=== PATIENT | female | born 2005 ===

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

== ENCOUNTER 2024-02-26 09:05 | Outpatient (AMB) | payer MEDICAID, SELFPAY ==
[2024-02-26 09:06] VITALS: BP 100/62; BMI 22.9
--- NOTE | 2024-02-26 09:06 | MHC.OFFVIS ---
Vital Signs 02/26/24 09:06 Height 5 ft 2 in Weight 125 lb BMI 22.9 BP 100/62 Intake Visit Reasons: BC follow up Card Dealer Required: No Information Interpreted: clinical only Barrel Lathe Operator Inside: Barrel Lathe Operator Inside Present Allergies Penicillins [PENICILLINS] Allergy (Unknown, Verified 02/26/24 09:06) UNKNOWN Medication List - Last Reconciled 02/26/24 by Mamie Kearney CNM desog-e.estradiol/e.estradiol 0.15-0.02 mgx21 /0.01 mg x 5 1 tab PO DAILY ibuprofen 400 mg PO Q6H 7 days Is last menstrual period known: Yes Last menstrual period: 02/10/24 Do you need a note to return to daycare/school/sports/work: No HPI HPI BC follow up: Details: Is here for control follow-up, she has a history of PCOS diagnosed in the past elsewhere. She had chlamydia in the spring she has not had contact with that partner since but she took the medication twice. Her sister has hepatitis a, so she would be interested in testing for that as well. She likes being on the control pills her periods are shorter and not as crampy instead of 7 days they are now 5 days and there less heavy and not as uncomfortable. She likes being on the pills and plans to stay on them she is not having any other problems she said that she had a test of cure at the office downstairs at the [facility] and the chlamydia is gone. She is having no issues with pills she has not had any outbreaks of the herpes for a year and she does have the Valtrex in case she did. [facility] Medical History Ovarian cyst Family History Maternal Grandfather Colon cancer Maternal Aunt Breast cancer Maternal Aunt Uterine cancer Social History Alcohol intake: unknown Female Reproductive History Menstrual Age of Menarche: 10 Duration of menses: 3-5 days Date of last menstrual period: 02/10/24 control method: pills Total pregnancies: 0 Physical Exam Vital Signs: Last Vital Signs BP 100/62 02/26/24 09:06 BMI result Body Mass Index 22.9 Assessment & Plan Assessment & Plan (1) History of irregular menstrual cycles: Code(s): Z87.42 - Personal history of other diseases of the female genital tract Category: Medical (2) control counseling: Code(s): Z30.09 - Encounter for other general counseling and advice on contraception Category: Medical (3) PCOS (polycystic ovarian syndrome): Comment: Patient states she was diagnosed 2 years ago between visit at [facility] and [facility]. Code(s): E28.2 - Polycystic ovarian syndrome Category: Medical (4) Possible exposure to STD: Code(s): Z20.2 - Contact with and (suspected) exposure to infections with a predominantly sexual mode of transmission Category: Medical (5) Chlamydia infection: Comment: Seen at same [facility] 7 days ago was notified of positive chlamydia Sunday. started the medication. is on doxy Cyclen for 14 days. Recommend completing the medicine regardless of testing results today; 02/26/24...states she had neg CHARLI at [facility], Code(s): A74.9 - Chlamydial infection, unspecified Category: Medical (6) Hx of herpes genitalis: Comment: Patient says she was diagnosed 2 years ago and has Valtrex for p.r.n. use has not had an outbreak in a while. Code(s): Z86.19 - Personal history of other infectious and parasitic diseases Category: Medical (7) History of PID: Comment: Patient says she went to same [facility] 7 days ago and was given 14 days of doxy Cyclen and was later told she had chlamydia. is still on the doxy-I recommend she finish all of it. exam benign today,08/24/23..(of note she was also about to get her period that started some hours later) Code(s): Z87.42 - Personal history of other diseases of the female genital tract Category: Medical Plan Reviewed the control pills danger signs and to call for any problems she is doing well with them and wants to stay on them as a double check I am sending another refill on her prescription so she does not run out in the next year. Discussed that her 1st Pap smear will be done sometime in her 20st year if she continues to be abstinent from sex she would not need any pelvic exams until then but if she is sexually active it would be medina to get checked for STIs. She is interested in in lead work to check about the hepatitis a so I reviewed labs that have been done in the system did not see HIV testing but her other screens were negative but since it has been several months I am re ordering serologies for blood work for hepatitis AB and C syphilis HIV. She is on the portal so she can get her results. We will see her in a year. Orders: Orders Hepatitis B Surface Antigen Today E28.2 - Polycystic ovarian syndrome, Z20.2 - Contact with and (suspected) exposure to infections with a predominantly sexual mode of transmission, Z30.09 - Encounter for other general counseling and advice on contraception, Z87.42 - Personal history of other diseases of the female genital tract Hepatitis C Antibody Today E28.2 - Polycystic ovarian syndrome, Z20.2 - Contact with and (suspected) exposure to infections with a predominantly sexual mode of transmission, Z30.09 - Encounter for other general counseling and advice on contraception, Z87.42 - Personal history of other diseases of the female genital tract HIV Ab/Ag Today E28.2 - Polycystic ovarian syndrome, Z20.2 - Contact with and (suspected) exposure to infections with a predominantly sexual mode of transmission, Z30.09 - Encounter for other general counseling and advice on contraception, Z87.42 - Personal history of other diseases of the female genital tract Syphilis Screen Today E28.2 - Polycystic ovarian syndrome, Z20.2 - Contact with and (suspected) exposure to infections with a predominantly sexual mode of transmission, Z30.09 - Encounter for other general counseling and advice on contraception, Z87.42 - Personal history of other diseases of the female genital tract Hepatitis A,B,C Profile Today E28.2 - Polycystic ovarian syndrome, Z20.2 - Contact with and (suspected) exposure to infections with a predominantly sexual mode of transmission, Z30.09 - Encounter for other general counseling and advice on contraception, Z87.42 - Personal history of other diseases of the female genital tract Medications: Refilled desog-e.estradiol/e.estradiol 0.15-0.02 mgx21 /0.01 mg x 5 Start with the beginning of the next menses 1 tab PO DAILY 84 tabs 3RF Coding Level of Care Code Est Pt Level 3 (45766) Diagnoses History of irregular menstrual cycles Z87.42 control counseling Z30.09 PCOS (polycystic ovarian syndrome) E28.2 Possible exposure to STD Z20.2 Chlamydia infection A74.9 Hx of herpes genitalis Z86.19 History of PID Z87.42
== END 2024-02-26 10:22 | disposition home or self-care (01) ==
PROVIDERS: PCP Pediatrics; Visit Provider Advanced Practice Midwife
DX: Z87.42 Personal history of other diseases of the female genital tract (principal); Z30.09 Encounter for other general counseling and advice on contraception; E28.2 Polycystic ovarian syndrome; Z20.2 Contact with and (suspected) exposure to infections with a predominantly sexual mode of transmission; A74.9 Chlamydial infection, unspecified; Z86.19 Personal history of other infectious and parasitic diseases
CPT/HCPCS: 99213

== ENCOUNTER → 2024-02-26 09:05 | Outpatient (BNVA) | payer MEDICAID, SELFPAY | PROVIDERS: PCP Pediatrics; Visit Provider Advanced Practice Midwife ==

== ENCOUNTER 2024-02-26 10:04 | Outpatient (REF) | payer MEDICAID, SELFPAY ==
[2024-02-26 12:02] LABS: HBS Num1 1.55 mIU/mL (0-7.99); HBc Num1 0.14 S/CO (0.00-0.79); HBsAGNum1 0.45 S/CO (0.00-0.99); HIV AB/AG Nonreactive (Nonreactive); HIV Num 1 0.05 S/CO (0.00-0.99); Hepatitis A Antibody IgM 0.22 Index (0-0.79); Hepatitis B Core Antibody Nonreactive (Nonreactive); Hepatitis B Surface Antigen Negative (Negative); ~HepC Num1 0.13 S/CO (0.00-0.79); ~Hepatitis A Antibody IgM Nonreactive (Nonreactive); ~Hepatitis B Surface Antibody NONREACTIVE (Nonreactive); ~Hepatitis C Antibody Nonreactive (Nonreactive)
[2024-02-26 12:06] LABS: Syphilis Screen Reactive (Nonreactive)
[2024-03-03 15:31] LABS: RPR Quantitative Non-Reactive (Nonreactive); T.Pallidum Particle Agg Test Non-Reactive (Nonreactive)
== END 2024-02-26 10:05 | disposition home or self-care (01) ==
LOC: HO.HHCL 10:04
PROVIDERS: Visit Provider Advanced Practice Midwife
DX: Z30.09 Encounter for other general counseling and advice on contraception (principal); Z20.2 Contact with and (suspected) exposure to infections with a predominantly sexual mode of transmission; Z87.42 Personal history of other diseases of the female genital tract; E28.2 Polycystic ovarian syndrome; A74.9 Chlamydial infection, unspecified; Z86.19 Personal history of other infectious and parasitic diseases
CPT/HCPCS: 36415; 86592; 86704; 86706; 86709; 86780; 86803; 87340; 87389; 99212

== ENCOUNTER 2024-05-27 09:49 | Outpatient (AMB) | payer MEDICAID, SELFPAY ==
--- NOTE | 2024-05-27 09:50 | A.OFFVIS_ITS ---
Vital Signs 05/27/24 09:57 Height 5 ft 2 in Weight 125 lb BMI 22.9 BP 100/60 Intake Visit Reasons: BC pill fu Security Associate Services: Security Associate Present Information Interpreted: clinical only Cuff Cutter: Cuff Cutter Present Allergies Penicillins [PENICILLINS] Allergy (Unknown, Verified 05/27/24 09:58) UNKNOWN Medication List - Last Reconciled 05/27/24 by Mamie Kearney CNM desog-e.estradiol/e.estradiol 0.15-0.02 mgx21 /0.01 mg x 5 1 tab PO DAILY ibuprofen 400 mg PO Q6H 7 days Is last menstrual period known: Yes Last menstrual period: 05/15/24 HPI HPI BC pill fu: Details: Patient is here have a pill check visit. 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 She tells me she has not been sexually active since her last visit here. Chart reviewed she had chlamydia diagnosed, she had PID diagnosed, both treated, she had initial positive test for syphilis last year. I called lab to confirm the that the confirmat[facility] She has a history of herpes and she says she takes Valtrex for 3 days when she has an outbreak but she does not have any refills. She says she gets it downstairs at the clinic, [facility] Medical History Ovarian cyst Family History Maternal Grandfather Colon cancer Maternal Aunt Breast cancer Maternal Aunt Uterine cancer Social History Alcohol intake: unknown Female Reproductive History Menstrual Age of Menarche: 10 Duration of menses: 3-5 days Date of last menstrual period: 05/15/24 control method: pills Physical Exam Vital Signs: Last Vital Signs BP 100/60 05/27/24 09:57 BMI result Body Mass Index 22.9 Results Reviewed Results Reviewed: I reviewed all her past serology in last year plus. Assessment & Plan Assessment & Plan (1) History of PID: Comment: Patient says she went to same day care [facility] 7 days ago and was given 14 days of doxy Cyclen and was later told she had chlamydia. is still on the doxy-I recommend she finish all of it. exam benign today,08/24/23..(of note she was also about to get her period that started some hours later)/05/27/24- rev safer sex... Code(s): Z87.42 - Personal history of other diseases of the female genital tract Category: Medical (2) control counseling: Comment: happy on oills Code(s): Z30.09 - Encounter for other general counseling and advice on contraception Category: Medical (3) History of irregular menstrual cycles: Comment: reg on ocps now Code(s): Z87.42 - Personal history of other diseases of the female genital tract Category: Medical (4) PCOS (polycystic ovarian syndrome): Comment: Patient states she was diagnosed 2 years ago between visit at [facility] and [facility]. Code(s): E28.2 - Polycystic ovarian syndrome Category: Medical (5) Chlamydia infection: Comment: Seen at same [facility] 7 days ago was notified of positive chlamydia Sunday. started the medication. is on doxy Cyclen for 14 days. Recommend completing the medicine regardless of testing results today; 02/26/24...states she had neg CHARLI at [facility], ;rev safer sex 05/27/24 Code(s): A74.9 - Chlamydial infection, unspecified Category: Medical (6) Hx of herpes genitalis: Comment: Patient says she was diagnosed 2 years ago and has Valtrex for p.r.n. use has not had an outbreak in a while.; Code(s): Z86.19 - Personal history of other infectious and parasitic diseases Category: Medical (7) Possible exposure to STD: Code(s): Z20.2 - Contact with and (suspected) exposure to infections with a predominantly sexual mode of transmission Category: Medical (8) Syphilis: Comment: Treponema pallidum antibody positive awaiting the RPR titers....Confirmatory testing neg ( rpr and tppa were both negative.) Code(s): A53.9 - Syphilis, unspecified Category: Medical Plan rev all of above. rev importance of safer sex. rev her contrentment w ocps. renewed rxs fro ocps and valtrex for prn use. rev that next yr when she turns 20, we'll do a pap smear w exam. she hasnt been sexually active since last visit, so no need for any new testing today Medications: New 2 valacyclovir take one tablet q day for 3-5 days for outbreak... 1,000 mg PO DAILY PRN 30 tabs 0RF for an outbreak Refilled desog-e.estradiol/e.estradiol 0.15-0.02 mgx21 /0.01 mg x 5 Start with the beginning of the next menses 1 tab PO DAILY 84 tabs 4RF Coding Level of Care Code Est Pt Level 3 (26361) Diagnoses History of PID Z87.42 control counseling Z30.09 History of irregular menstrual cycles Z87.42 PCOS (polycystic ovarian syndrome) E28.2 Chlamydia infection A74.9 Hx of herpes genitalis Z86.19 Possible exposure to STD Z20.2 Syphilis A53.9
[2024-05-27 09:57] VITALS: BP 100/60; BMI 22.9
== END 2024-05-27 11:10 | disposition home or self-care (01) ==
LOC: HO.HWSM 09:49
PROVIDERS: PCP Pediatrics; Visit Provider Advanced Practice Midwife
DX: Z87.42 Personal history of other diseases of the female genital tract (principal); Z30.09 Encounter for other general counseling and advice on contraception; E28.2 Polycystic ovarian syndrome; A74.9 Chlamydial infection, unspecified; Z86.19 Personal history of other infectious and parasitic diseases; Z20.2 Contact with and (suspected) exposure to infections with a predominantly sexual mode of transmission; A53.9 Syphilis, unspecified
CPT/HCPCS: 99213

== ENCOUNTER → 2024-05-27 09:49 | Outpatient (BNVA) | payer MEDICAID, SELFPAY | PROVIDERS: PCP Pediatrics; Visit Provider Advanced Practice Midwife | DX: Z51.81 Encounter for therapeutic drug level monitoring (principal); Z30.09 Encounter for other general counseling and advice on contraception; A74.9 Chlamydial infection, unspecified; E28.2 Polycystic ovarian syndrome; Z20.2 Contact with and (suspected) exposure to infections with a predominantly sexual mode of transmission; Z87.42 Personal history of other diseases of the female genital tract; Z86.19 Personal history of other infectious and parasitic diseases | CPT/HCPCS: 99212 ==

== ENCOUNTER 2024-08-22 10:40 | Outpatient (REF) | payer MEDICAID, SELFPAY ==
--- NOTE | ~2024-08-22 | XR_ITS ---
EXAMINATION: XR CHEST 2 VIEWS HISTORY: persistent cough and fever COMPARISON: Comparison is made with the prior examination dated 04/10/2019. FINDINGS: PA and lateral views of the chest are submitted. The lungs are expanded and clear. There is no pleural effusion, pneumothorax, or pulmonary vascular congestion. The heart is normal in size. The bones are intact. XR/XR chest 2V IMPRESSION: No acute cardiopulmonary abnormality. Electronically signed by: Ismael Navarro MD 08/22/2024 11:20 AM BYRANNA
--- OUTSIDE RECORDS SUMMARY | 2024-08-22 12:10 | XMS_ITS | Clinical Summary ---
Author Organization [employer] Address [address] [place] [address] 7[address] [place] [address] Care Team Providers Care Contractor General Building Name Role Phone Ainsley Cervantes NP Primary Care Provider [phone] Allergies Active Allergy Reactions Criticality Noted Date Comments Penicillins 05/29/2019 Medications * This document contains information received from the source organization and may not represent a complete record from that organization. valACYclovir (Valtrex) 500 MG tabletIndications: HSV (herpes simplex virus) infection TAKE 1 TABLET BY MOUTH TWICE DAILY FOR 3 DAYS FOR OUTBREAK 6 tablet 5 4 Active ibuprofen 600 MG tablet take 1 tablet by oral route every 6-8 hours with food as needed for pain 30 tablet 4 Active ibuprofen 600 MG tabletIndications: Acute streptococcal pharyngitis Take 1 tablet (600 mg) by mouth every 8 (eight) hours if needed for moderate pain or fever. 30 tablet 5 09/19/19 25 Active azithromycin (Zithromax) 250 MG tabletIndications: Acute streptococcal pharyngitis Take 2 tablets (500 mg) by mouth Once per day for 1 day, THEN 1 tablet (250 mg) Once per day for 4 days. 6 tablet 5 08/24/19 25 Active oseltamivir (Tamiflu) 75 MG capsuleIndications :Influenza A Infection Take 1 capsule (75 mg) by mouth 2 times daily for 5 days. 10 capsule 5 08/25/19 25 Active albuterol 108 (90 Base) MCG/ACT inhalerIndications :Persistent cough Inhale 2 puffs every 6 (six) hours if needed for wheezing. 18 g 1 5 08/23/19 26 Active acetaminophen (Tylenol Extra Strength) 500 MG tabletIndications: Influenza B Take 2 tablets (1,000 mg) by mouth every 8 (eight) hours if needed for mild pain, moderate pain, headaches or fever for up to 10 days. 30 tablet 5 09/02/19 25 Active brompheniramine-ps eudoephedrine-DM 30-2-10 MG/5ML syrupIndications:P ersistent cough Take 5 mL by mouth if needed in the morning, at noon, in the evening, and at bedtime for cough for up to 10 days. 120 mL 5 09/02/19 25 Active Active Problems Problem Noted Date Diagnosed Date Persistent cough 08/22/2024 Assessment & Plan (08/22/2024 10:58 AM EST): Drink plenty of fluids and rest I will prescribe acetaminophen 1000 mg every 8 hours for body aches and fever Cough syrup every 4-6 hours Albuterol 2 puff every 4-6 hours as needed I will order an x-ray to rule out a superimposed pneumonia patient will be contacted with results Acute streptococcal pharyngitis 08/19/2024 Assessment & Plan (08/19/2024 5:16 PM EST): -rapid strep positive -azithromycin (Zithromax) 250 MG Take 2 tablets (500 mg) by mouth Once per day for 1 day, THEN 1 tablet (250 mg) Once per day for 4 days -ibuprofen 600 MG PRN for fever or pain. -droplet precautions discussed -supportive care discussed Influenza B 08/19/2024 Assessment & Plan (08/19/2024 5:16 PM EST): -rapid influenza B positive -oseltamivir (Tamiflu) 75 MG, Take 1 capsule (75 mg) by mouth 2 times daily for 5 days -droplet precautions discussed -supportive care discussed Pelvic pain 08/16/2023 Missed period 08/16/2023 Palpitations 01/31/2023 Other chest pain 01/31/2023 Adjustment disorder with depressed mood 08/06/19 23 Asthma 08/06/2022 Cyst of ovary 08/06/2022 Herpes simplex 08/06/2022 Irregular periods 08/06/2022 Encounters * This document contains information received from the source organization and may not represent a complete record from that organization. Date Type Department Care Team Description 08/22/2024 9:20 AM EST Office Visit [facility] [address] [address] Isha Marin MD Persistent cough (Primary Dx); Influenza B 08/19/2024 5:00 PM EST Office Visit [facility] [address] [address] Tereza Sebastian MD Acute streptococcal pharyngitis (Primary Dx); Influenza B 08/19/2024 Telephone [facility] [address] [place] [phone] Tereza Sebastian MD from Last 3 Months Immunizations Name Administration Dates Next Due DTaP 2004 DTaP, Unspecified 07/25/2008, 6,01/06/2005,10/22 HPV 9-Valent 09/14/2020,12/31/2018 Hep A, Unspecified 07/07/2006 Hep A, ped/adol, 2 dose 03/24/2019,2004 Hep B, Adolescent or Pediatric 2004 Hep B, Unspecified 01/06/2005,2004 HiB, unspecified 09/19/2005,2004 Hib (PRP-T) 2004 IPV 07/25/2008, 5,2004,08/20 Influenza injectable quadriv alent preservative free 09/14/2020,03/24/2019,02/15/2017 MMR 01/23/2009,08/23/2005 Meningococcal MCV4P ACYW-135 09/14/2020,08/19/19 16 Pfizer Covid-19 Vaccine 12+ 04/15/2021, Pneumococcal Conjugate PCV 13 09/19/2005 ,01/06/2005,2004,08/20 Tdap 08/19/2015 Varicella 01/23/2009,08/23/2005 Social History Tobacco Use Types Packs/Day Years Used Date Smoking Tobacco: Never Passive Smoke Exposure: Never Smokeless Tobacco: Never Tobacco Cessation:Counseling Given: Not Answered Alcohol Use Standard Drinks/Week Comments Never 0 (1 standard drink = 0.6 oz pur e alcohol) Comments No Sex and Gender Information Value Date Recorded Sex Assigned at Female 04/17/2022 10:35 AM EDT Legal Sex Female 10:35 AM EDT Gender Identity Female 04/17/2022 10:35 AM EDT Sexual Orientation Straight 04/17/2022 10 :35 AM EDT Last Filed Vital Signs Vital Sign Reading Time Taken Comments Blood Pressure 121/77 08/22/2024 9:11 AM EST Pulse 96 08/22/2024 9:11 AM EST Temperature 37.2 ??C (98.9 ??F) 08/22/2024 9:11 AM ES T Respiratory Rate 20 08/22/2024 9:11 AM EST Oxygen Saturation 98% 08/22/2024 9:11 AM EST Inhaled Oxygen Concentration - - Weight 60.8 kg (134 lb) 08/22/2024 9:11 AM EST Height 160 cm (5' 3 ) 08/22/2024 9:11 AM EST Body Mass Index 23.74 08/22/2024 9:11 AM EST Plan of Treatment Upcoming Encounters Date Type Department Care Team (Late st Contact Info) Description 09/15/2024 2:00 PM EDT Office Visit [facility] [address] [place] [address] Ainsley Cervantes NP [address] [place] [address] Health Maintenance Due Date Last Done Comments Depression Screening 2004 SDOH Screening 2004 Pneumococcal Vaccine: Pediatrics (0 to 5 Years) and At-Risk Patients (6 to 49) Years) (1 of 1 - PPSV23) 2010 09/19/2005, 01/06/2005, 2004, Additional history exists Alcohol/Substance Use Screening 2016 Family Planning (PISQ) 2019 COVID-19 Vaccine ( season) 2024 04/15/2021, 03/25/2021 Influenza Vaccine (#1) 2024 , 03/24/2019, 02/15/2017 Chlamydia and Gonorrhea Screening 10/21/2024 10/22/2023, 08/16/2023, 02/15/2023, Additional history exists Tobacco Screening 10/21/2024 10/22/2023 DTaP/Tdap/Td Vaccines (7 - Td or Tdap) 08/18/2025 08/19/2015, 07/25/2008, 09/19/2005, Additional history exists Zoster Vaccines (1 of 2) 2054 RSV Patients and Patients Aged 60 years or older (1 - 1-dose 75+ series) 2079 Hepatitis B Vaccines Completed 01/06/2005, 2004, 2004 HIB Vaccines Completed 09/19/2005, 12/2004, 2004 IPV Vaccines Completed 07/25/2008, 12/17, 2004, Additional history exists Hepatitis A Vaccines Completed 03/24/2019, 07/07/2006, 2004 HPV Vaccines Completed 09/14/2020, 12/31/2018 Meningococcal Vaccine Completed 09/14/2020, 016 HIV Screening Completed 12/29/2021 Hepatitis C Screening Completed 12/29/2021 RSV under 20 months Aged Out No longe r eligible based on patient's age to complete this topic Rotavirus Vaccines Aged Out No longer eligible based on patient's age to complete this topic Procedures Procedure Name Priority Date/Time Associated Diagnosis Comments XR CHEST 2 VIEWS Routine 08/22/2024 10:4 1 AM EST Persistent cough Influenza B POCT INFLUENZA A (ID NOW RAPID MOLECULAR) Routine 08/19/2024 5:19 PM EST Acute streptococcal pharyngitis POCT RAPID COVID ANTIGEN Routine 08/19/2024 5:16 PM EST Acute streptococcal pharyngitis POCT INFLUENZA B (ID NOW RAPID MOLECULAR) Routine 08/19/2024 5:16 PM EST Acute streptococcal pharyngitis POC DEAL ID NOW STREP A Routine 08/19/2024 5:10 PM EST Acute streptococcal pharyngitis CHLAMYDIA/N. GONORRHOEAE RNA, TMA, UROGENITAL Routine 10/22/2023 10:17 AM EDT Pain of ovary ZZZ HISTORICAL HEPATITIS C AB W/REFL TO HCV RNA, QN, PCR Routine 12/29/2021 9:34 AM EDT HIV 1/2 ANTIGEN/ANTIBODY, FOURTH GENERATION W/RFL Routine 12/29/2021 9:34 AM EDT from Last 3 Months or Most Recently Relevant to Health Maintenance Results * XR Chest 2 Views (08/22/2024 10:41 AM EST) Anatomical Region Laterality Modality Chest Radiographic Olivia ging 08/22/2024 10:4 1 AM EST Narrative 08/22/2024 11:23 AM EST ?[facility] ?[address] ?[place] [address] ?XRay Report ? Signed ? Patient: Elisa Coburn ?MR#: ?? [id number] ? : 2005 ?Acct:[id number] ? Age/Sex: 19 / F ?ADM Date: 08/22/24 ? Loc: HO.HHCX ? Attending Dr: Isha Leo MD ? Ordering Physician: Isha Marin MD ?? Date of Service: 08/22/24 ?? Procedure(s): XR chest 2V ?? Accession Number(s): [id number] ? cc: Isha Marin MD ? EXAMINATION: ??XR CHEST 2 VIEWS ? HISTORY: persistent cough and fever ? COMPARISON: Comparison is made with the prior examination dated ?? 04/10/2019. ? FINDINGS: ??PA and lateral views of the chest are submitted. The lungs ?? are expanded and clear. ??There is no pleural effusion, pneumothorax, or ?? pulmonary vascular congestion. ??The heart is normal in size. ??The bones ?? are intact. ? XR/XR chest 2V ?? IMPRESSION: ?? No acute cardiopulmonary abnormality. ? Electronically signed by: ??Ismael Navarro MD ??08/22/2024 11:20 AM EST ?? RP ? Dictated By: ?Ismael Navarro MD ? Signed By: ?<Electronically signed by Ismael Navarro MD in OV> ?08/22/24 1120 ? DD/ 1041 ? TD/TT: 08/22/24 1100 ? Underwriter Solicitation Director: ? Procedure Note Donlyndsayter, Image - 08/22/2024 [facility] [address] [place] [address] XRay Report Signed Patient: Elisa Coburn MMR#: [id number] : 2005Acct:[id number] Age/Sex: 19 / FADM Date: 08/22/24 Loc: HO.HHCX Attending Dr: Isha Leo MD Ordering Physician: Isha Marin MD Date of Service: 08/22/24 Procedure(s): XR chest 2V Accession Number(s): [id number] cc: Isha Marin MD EXAMINATION: XR CHEST 2 VIEWS HISTORY: persistent cough and fever COMPARISON: Comparison is made with the prior examination dated 04/10/2019. FINDINGS: PA and lateral views of the chest are submitted. The lungs are expanded and clear. There is no pleural effusion, pneumothorax, or pulmonary vascular congestion. The heart is normal in size. The bones are intact. XR/XR chest 2V IMPRESSION: No acute cardiopulmonary abnormality. Electronically signed by: Ismael Navarro MD 08/22/2024 11:20 AM EST Dictated By: Ismael Navarro MD Signed By: <Electronically signed by Ismael Navarro MD in OV> 08/22/24 1120 DD/ 1041 TD/TT: 08/22/24 1100 Underwriter Solicitation Director: us Isha Leo MD IMG XR PROCEDURES Fin al Result * POCT Rapid Influenza A DEAL ID NOW (08/19/2024 5:19 PM EST) [facility] Influenza A Negative Negative, Indeterminate [facility] QC Media Lot # [id number] [facility] Lot# Expiration Date [facility] Swab 08/19/2024 5:19 PM EST Tereza Sebastian MD POINT OF CARE TEST ENTER/E DIT ORDERABLES Final Result Performing Organization Address City/[facility]/ZIP Co de Phone Number [facility] [address] [place] [phone] * (ABNORMAL) POCT Rapid Influenza B DEAL ID NOW (08/19/2024 5:16 PM EST) [facility] Influenza B Positive( A) Negative, Indeterminate [facility] QC Media Lot # [id number] [facility] Lot# Expiration Date 6 [facility] Swab 08/19/2024 5:16 PM EST Tereza Sebastian MD POINT OF CARE TEST ENTER/E DIT ORDERABLES Final Result Performing Organization Address City/[facility] Co de Phone Number [facility] [address] [place] [phone] * POCT Rapid Covid-19 BinaxNOW (08/19/2024 5:16 PM EST) [facility] Rapid COVID Ag Negative QC Media Lot # [id number] Lot# Expiration Date 026 Swab 08/19/2024 5:16 PM EST Tereza Sebastian MD POINT OF CARE TEST ENTER/E DIT ORDERABLES Final Result * (ABNORMAL) POCT Rapid Strep A DEAL ID NOW (08/19/2024 5:10 PM EST) [facility] Rapid Strep A Screen Positive( A) Negative, None Detected QC Media Lot # [id number] Lot# Expiration Date 6 Swab 08/19/2024 5:10 PM EST Tereza Sebastian MD POINT OF CARE TEST ENTER/E DIT ORDERABLES Final Result * Chlamydia/N. Gonorrhoeae RNA, TMA, Urogenitial (10/22/2023 10:17 AM EDT) CT PCR NOT DETECTED Not Detect. [facility] Comment:A not detected test result does not exclude the possibilityof infection because test results can be affected byimproper specimen collection, concurrent antibiotic therapy,or the number of organisms in the specimen which may bebelow the sensitivity of the test. As with many diagnostictests, results from the Xpert CT/NG assay should beinterpreted in conjunction with other laboratory andclinical data available to the clinician.Xpert CT/NG performance has not been evaluated in patientsless than 14 years of age. The assay should not be used forthe evaluationof suspected sexual abuse or for other medico-legalindications. Additional testing is recommended in anycircumstance when false positive or false negative resultscould lead to adverse medical, social or psychologicalconsequences. NG PCR NOT DETECTED Not Detect. [facility] Comment:A not detected test result does not exclude the possibilityof infection because test results can be affected byimproper specimen collection, concurrent antibiotic therapy,or the number of organisms in the specimen which may bebelow the sensitivity of the test. As with many diagnostictests, results from the Xpert CT/NG assay should beinterpreted in conjunction with other laboratory andclinical data available to the clinician.Xpert CT/NG performance has not been evaluated in patientsless than 14 years of age. The assay should not be used forthe evaluationof suspected sexual abuse or for other medico-legalindications. Additional testing is recommended in anycircumstance when false positive or false negative resultscould lead to adverse medical, social or psychologicalconsequences. Urine (Urine, Random) 10/22/2023 10:17 AM EDT 10/22/2023 7:26 PM EDT Narrative [facility] - 10/23/2023 5:48 AM EDT Urine us Jacob Mccall MD LAB MICROBIOLOGY - GENERAL ORDERABLES Final Result Performing Organization Address City/[facility]/ZIP Co de Phone Number [facility] [address] [place] [phone] * HEPATITIS C AB W/REFL TO HCV RNA, QN, PCR (12/29/2021 9:34 AM EDT) HEPATITIS C ANTIBODY NON-REACT [facility] NON-REACT [facility] INDEX 0.08 <1.00 [facility] Comment: ?? HCV antibody was non-reactive. There is no laboratory ?? evidence of HCV infection. ?? In most cases, no further action is required. However, if recent HCV exposure is suspected, a test for HCV RNA (test code 05413) is suggested. ?? For additional information please refer to http://education.Nexio/faq/ERA01v9 (This link is being provided for informational/ educational purposes only.) ?? 12/29/2021 9:34 AM EDT Fartun Jimy COUNTY TAX ASSESSOR HISTORICAL/NON ORDERABLE LABS Final Result Performing Organization Address City/[facility] Co de Phone Number [facility] [address] * HIV 1/2 ANTIGEN/ANTIBODY,FOURTH GENERATION W/RFL (12/29/2021 9:34 AM EDT) HIV-1/2 ANTIGEN AND ANTIBODIES, 4TH GENERATION W/ REFLEX NON-REACT [facility] NON-REACT [facility] Comment: HIV-1 antigen and HIV-1/HIV-2 antibodies were not detected. There is no laboratory evidence of HIV infection. ?? PLEASE NOTE: This information has been disclosed to you from records whose confidentiality may be protected by state law. ??If your state requires such protection, then the state law prohibits you from making any further disclosure of the information without the specific written consent of the person to whom it pertains, or as otherwise permitted by law. A general authorization for the release of medical or other information is NOT sufficient for this purpose. ? For additional information please refer to http://education.MyRepublic.Principle Power/faq/FFB433 (This link is being provided for informational/ educational purposes only.) ? The performance of this assay has not been clinically validated in patients less than 2 years old. ?? 12/29/2021 9:34 AM EDT us Fartun Ahn COUNTY TAX ASSESSOR LAB BLOOD ORDERABLES Final Res ult [facility] Count includes the [facility] [address] from Last 3 Months or Most Recently Relevant to Health Maintenance Insurance [address] [address] C3 Care Teams Contractor General Building Relationship Specialty Start Date End Date Ainsley Cervantes NP [address] [place] [phone] PCP - General Family Medicine 08/13/23
--- OUTSIDE RECORDS SUMMARY | 2024-08-22 12:11 | XMS_ITS | Encounter Summary ---
Author Organization [employer] Address [address] [place] [address] [address] [place] [address] Care Team Providers Care Heel Nailing Machine Operator Name Role Phone Ainsley Cervantes NP Primary Care Provider [phone] Encounter Details Date Type Department Care Team (Late Contact Info) Description 08/19/2024 Telephone [facility] [address] [place] [address] [phone] Tereza Sebastian MD [address] [place] [address] [phone] Social History Tobacco Use Types Packs/Day Years Used Date Smoking Tobacco: Never Passive Smoke Exposure: Never Smokeless Tobacco: Never Alcohol Use Standard Drinks/Week Comments Never 0 (1 standard drink = 0.6 oz pur e alcohol) Comments No Sex and Gender Information Value Date Recorded Sex Assigned at Female 04/17/2022 10:35 AM EDT Legal Sex Female 10:35 AM EDT Gender Identity Female 04/17/2022 10:35 AM EDT Sexual Orientation Straight 04/17/2022 10 :35 AM EDT documented as of this encounter Plan of Treatment Upcoming Encounters Date Type Department Care Team (Late st Contact Info) Description 09/15/2024 2:00 PM EDT Office Visit [facility] [address] [place] [address] [phone] Ainsley Cervantes NP [address] [place] [phone] documented as of this encounter Visit Diagnoses Not on filedocumented in this encounter Care Teams Heel Nailing Machine Operator Relationship Specialty Start Date End Date Ainsley Cervantes NP [address] [place] [address] PCP - General Family Medicine 08/13/23 documented as of this encounter
--- OUTSIDE RECORDS SUMMARY | 2024-08-22 12:11 | XMS_ITS | Encounter Summary ---
Author Organization [employer] Address [address] [place] [address] 7[address] [place] [address] Care Team Providers Care Section Housekeeper Name Role Phone Ainsley Cervantes NP Primary Care Provider [phone] Reason for Visit * Reason Comments worsening FLU symptoms Encounter Details Date Type Department Care Team ([facility] st Contact Info) Description 08/22/2024 9:20 AM EST Office Visit [facility] [address] [place] [address] Isha Marin MD [address] [place] [address] Persistent cough (Primary Dx); Influenza B Social History Tobacco Use Types Packs/Day Years [...] AM EDT documented as of this encounter Last Filed Vital Signs Vital Sign Reading [...] Mass Index 23.74 08/22/2024 9:11 AM EST documented in this encounter Progress Notes * Isha Leo MD - 08/22/2024 9:20 AM EST SUBJECTIVE: Elisa Peralta is a 19 y.o. year old female who presents for Persistent flu symptoms . Acute Concerns: Patient was diagnosed on August 19 of this year with influenza B and streptococcal pharyngitis it wasprescribed for her azithromycin (patient is penicillin allergic) and oseltamivir, it was advised for her to come back if she was not getting better, today patient reports worsening symptoms persistent fever, cough, body aches, pleuritic pain, loss of appetite Social History Social History Narrative Not on file Patient Active Problem List Diagnosis Adjustment disorder with depressed mood Asthma Cyst of ovary Herpes simplex Irregular periods Palpitations Other chest pain Pelvic pain Missed period Acute streptococcal pharyngitis Influenza B Persistent cough No family history on file. Review of Systems Constitutional: Positive for activity change, appetite change, chills, fatigue and fever. Negative for diaphoresis and unexpected weight change. HENT: Positive for congestion, postnasal drip, rhinorrhea, sore throat and voice change. Negative for dental problem, drooling, ear discharge, ear pain, facial swelling, hearing loss, mouth sores, nosebleeds, sinus pressure, sinus pain, sneezing, tinnitus and trouble swallowing. Respiratory: Positive for cough and shortness of breath. Negative for apnea, choking, chest tightness, wheezing and stridor. Cardiovascular: Negative. Gastrointestinal: Negative. OBJECTIVE: Vitals: 08/22/24 0911 BP: 121/77 BP Location: Left arm Patient Position: Sitting BP Cuff Size: Adult Pulse: 96 Resp: 20 Temp: 98.9 ??F (37.2 ??C) TempSrc: Oral SpO2: 98% Weight: 134 lb (60.8 kg) Height: 5' 3 (1.6 m) Physical Exam Constitutional: Appearance: Normal appearance. Cardiovascular: Rate and Rhythm: Normal rate and regular rhythm. Pulmonary: Effort: Pulmonary effort is normal. Breath sounds: Normal breath sounds. Abdominal: General: Abdomen is flat. Palpations: Abdomen is soft. Musculoskeletal: Right lower leg: No edema. Left lower leg: No edema. Neurological: Mental Status: She is alert. Follow Up: No follow-ups on file. Current Outpatient Medications on File Prior to Visit Medication Sig Dispense Refill azithromycin (Zithromax) 250 MG tablet Take 2 tablets (500 mg) by mouth Once per day for 1 day, THEN 1 tablet (250 mg) Once per day for 4 days. 6 tablet 0 ibuprofen 600 MG tablet take 1 tablet by oral route every 6-8 hours with food as needed for pain 30tablet 0 ibuprofen 600 MG tablet Take 1 tablet (600 mg) by mouth every 8 (eight) hours if needed for moderate pain or fever. 30 tablet 0 oseltamivir (Tamiflu) 75 MG capsule Take 1 capsule (75 mg) by mouth 2 times daily for 5 days. 10 capsule 0 valACYclovir (Valtrex) 500 MG tablet TAKE 1 TABLET BY MOUTH TWICE DAILY FOR 3 DAYS FOR OUTBREAK 6 tablet 5 No current facility-administered medications on file prior to visit. Problem List Items Addressed This Visit Persistent cough - Primary Drink plenty of fluids and rest I will prescribe acetaminophen 1000 mg every 8 hours for body aches and fever Cough syrup every 4-6 hours Albuterol 2 puff every 4-6 hours as needed I will order an x-ray to rule out a superimposed pneumonia patient will be contacted with results Relevant Medications albuterol 108 (90 Base) MCG/ACT inhaler lkydupgsquojjme-ncccjljequedzit-IX 30-2-10 MG/5ML syrup Other Relevant Orders XR Chest 2 Views Influenza B Relevant Medications acetaminophen (Tylenol Extra Strength) 500 MG tablet Other Relevant Orders XR Chest 2 Views documented in this encounter Miscellaneous Notes * Assessment & Plan Note - Isha Leo MD - 08/22/2024 10:58 AM EST Associated Problem(s): Persistent cough Drink plenty of fluids and rest I will prescribe acetaminophen 1000 mg every 8 hours for body aches and fever Cough syrup every 4-6 hours Albuterol 2 puff every 4-6 hours as needed I will order an x-ray to rule out a superimposed pneumonia patient will be contacted with results documented in this encounter Plan of Treatment Upcoming Encounters Date Type Department Care Team (Late st Contact Info) Description 09/15/2024 2:00 PM EDT Office Visit [facility] [address] [place] [address] Ainsley Cervantes NP [address] [facility] [place] [address] documented as of this encounter Procedures Procedure Name Priority Date/Time Associated Diagnosis Comments XR CHEST 2 VIEWS Routine 08/22/2024 10:4 1 AM EST Persistent cough Influenza B documented in this encounter Results * XR Chest 2 Views (08/22/2024 10:41 AM EST) Anatomical Region Laterality Modality Chest Radiographic Olivia ging 08/22/2024 10:4 1 AM EST Narrative 08/22/2024 11:23 AM EST ?[facility] ?[address] ?[place] [address] ?XRay Report ? Signed ? Patient: Elisa Coburn ?MR#: ?? [id number] ? : 2005 ?Acct:[id number] ? Age/Sex: 19 / F ?ADM Date: 08/22/24 ? Loc: HO.HHCX ? Attending Dr: Isha Leo MD ? Ordering Physician: Isha Marin MD ?? Date of Service: 08/22/24 ?? Procedure(s): XR chest 2V ?? Accession Number(s): [id number] ? cc: Isha Marin MD ? EXAMINATION: [...] signed by Ismael Navarro MD in OV> ?08/22/240 ? DD/ 1041 ? TD/TT: 08/22/24 1100 ? City Treasurer: ? Procedure Note Donlyndsayter, Image - 08/22/[address] [address] XRay Report Signed Patient: Elisa Coburn MMR#: [id number] : 2005Acct:[id number] Age/Sex: 19 FADM Date: 08/22/24 Loc: HO.HHCX Attending Dr: Isha Leo MD Ordering Physician: Isha Marin MD Date of Service: 08/22/24 Procedure(s): XR chest 2V Accession Number(s): [id number] cc: Isha Marin MD EXAMINATION: XR CHEST [...] 08/22/24 1120 DD/ 1041 TD/TT: 08/22/24 1100 City Treasurer: us Isha Leo MD IMG XR PROCEDURES Fin al Result documented in this encounter Visit Diagnoses Diagnosis Persistent cough- Primary Influenza B Influenza with other respiratory manifestations documented in this encounter Care Teams Section Housekeeper Relationship Specialty Start Date End Date Ainsley Cervantes NP [address] [place] [phone] PCP - General Family Medicine 08/13/23 documented as of this encounter
--- OUTSIDE RECORDS SUMMARY | 2024-08-22 12:11 | XMS_ITS | Encounter Summary ---
Author Organization [employer] Address [address] [place] [address] 7[address] [place] [address] Care Team Providers Care Clinical Studies Specialist Name Role Phone Ainsley Cervantes NP Primary Care Provider [phone] Reason for Visit * Reason Onset Date Comments Med Refill 10/24/2023 Encounter Details Date Type Department Care Team (Late st Contact Info) Description 10/24/2023 Refill [facility] [address] [place] [address] Isha Marin MD [address] [place], [place] [phone] HSV (herpes simplex virus) infection Social History Tobacco Use Types Packs/Day Years [...] Description 09/15/2024 2:00 PM EDT Office Visit [facility] [address] [place] [address] Ainsley Cervantes NP [address] [place] [address] documented as of this encounter Visit Diagnoses Diagnosis HSV (herpes simplex virus) infection Herpes simplex without mention of complication documented in this encounter Care Teams Clinical Studies Specialist Relationship Specialty Start Date End Date Ainsley Cervantes NP [address] [place] [phone] PCP - General Family Medicine 08/13/23 documented as of this encounter
--- OUTSIDE RECORDS SUMMARY | 2024-08-22 12:11 | XMS_ITS | Encounter Summary ---
Author Organization [employer] Address [address] [facility] 7t [place] [address] Care Team Providers Care Supervisor Ship Maintenance Services Name Role Phone Ainsley Cervantes NP Primary Care Provider [phone] Encounter Details Date Type Department Care Team (Latest Contact Info) Description 08/19/2024 5:00 PM EST Office Visit [facility] [address] [place], [place] [phone] Tereza Sebastian MD [address] [place], [place] [phone] Acute streptococcal pharyngitis (Primary Dx); Influenza B Social History Tobacco [...] Sign Reading Time Taken Comments Blood Pressure 112/72 08/19/2024 5:05 PM EST Pulse 114 08/19/2024 5:05 PM EST Temperature 39.3 ??C (102.7 ??F) 08/19/2024 5:[address] Respiratory Rate 20 08/19/2024 5:05 PM EST Oxygen Saturation 92% 08/19/2024 5:05 PM EST Inhaled Oxygen Concentration - - Weight 61.8 kg (136 lb 3.2 oz) 08/19/2024 5:05 P M EST Height 160 cm (5' 3 ) 08/19/2024 5:05 PM EST Body Mass Index 24.13 08/19/2024 5:05 PM EST documented in this encounter Progress Notes * Swapna Graff - 08/19/2024 5:00 PM EST Subjective History was provided by the patient. Elisa Peralta is a 19 y.o. female with past medical history of ovarian cyst, hx of herpesand depression who presents for evaluation of symptoms of a URI. Symptoms include fever, sore throat, nausea, and headache . Onset of symptoms was 1 day ago, unchanged since that time. Associated negative symptoms include cough, shortness of breath, vomiting, and diarrhea. Evaluation to date: none.Treatment to date: none. Objective Vitals: 08/19/24 1705 BP: 112/72 BP Location: Left arm Patient Position: Sitting BP Cuff Size: Adult Pulse: (!) 114 Resp: 20 Temp: (!) 102.7 ??F (39.3 ??C) TempSrc: Oral SpO2: 92% Weight: 136 lb 3.2 oz (61.8 kg) Height: 5' 3 (1.6 m) Physical Exam Constitutional: Appearance: Normal appearance. Comments: febrile HENT: Right Ear: Tympanic membrane normal. Left Ear: Tympanic membrane normal. Mouth/Throat: Pharynx: Oropharynx is clear. Posterior oropharyngeal erythema present. No oropharyngeal exudate. Eyes: Conjunctiva/sclera: Conjunctivae normal. Cardiovascular: Rate and Rhythm: Normal rate and regular rhythm. Heart sounds: Normal heart sounds. Pulmonary: Effort: Pulmonary effort is normal. Breath sounds: Normal breath sounds. Musculoskeletal: Cervical back: Normal range of motion. No rigidity or tenderness. Lymphadenopathy: Cervical: Cervical adenopathy present. Skin: General: Skin is warm. Neurological: Mental Status: She is alert. Psychiatric: Behavior: Behavior normal. Office Visit on 08/19/2024 Component Date Value Ref Range Status Influenza B 08/19/2024 Positive (A) Negative, Indeterminate Final QC Media Lot # 08/19/2024 [id number] Final Lot# Expiration Date 08/19/2024 [id number] Final Rapid Strep A Screen 08/19/2024 Positive (A) Negative, None Detected Final QC Media Lot # 08/19/2024 [id number] Final Lot# Expiration Date 08/19/2024 [id number] Final Problem List Items Addressed This Visit Acute streptococcal pharyngitis - Primary -rapid strep positive -azithromycin (Zithromax) 250 MG Take 2 tablets (500 mg) by mouth Once per day for 1 day, THEN 1 tablet (250 mg) Once per day for 4 days -ibuprofen 600 MG PRN for fever or pain. -droplet precautions discussed -supportive care discussed Relevant Medications ibuprofen 600 MG tablet azithromycin (Zithromax) 250 MG tablet Other Relevant Orders POCT Rapid Influenza B DEAL ID NOW (Completed) POCT Rapid Influenza A DEAL ID NOW POCT Rapid Covid-19 BinaxNOW POCT Rapid Strep A DEAL ID NOW (Completed) Influenza B -rapid influenza B positive -oseltamivir (Tamiflu) 75 MG, Take 1 capsule (75 mg) by mouth 2 times daily for 5 days -droplet precautions discussed -supportive care discussed Relevant Medications oseltamivir (Tamiflu) 75 MG capsule -No evidence of acute disease process. Swabs positive for strep and Flu B. COVID negative. Symptomsmild. -Will treat with abx, NSAIDs and Tamiflu . -ER precautions discussed. -Seek medical attention for worsening symptoms. I, Swapna Graff, am serving as a scribe to document services personally performed by Dr. Ortiz, based on the patient's response to questions by provider and providers statements to me. documented in this encounter Miscellaneous Notes * Assessment & Plan Note - Swapna Graff - 08/19/2024 5:15 PM ESTAssociated Problem(s): Influenza B -rapid influenza B positive -oseltamivir (Tamiflu) 75 MG, Take 1 capsule (75 mg) by mouth 2 times daily for 5 days -droplet precautions discussed -supportive care discussed * Assessment & Plan Note - Swapna Graff - 08/19/2024 5:12 PM ESTAssociated Problem(s): Acute streptococcal pharyngitis -rapid strep positive -azithromycin (Zithromax) 250 MG Take 2 tablets (500 mg) by mouth Once per day for 1 day, THEN 1 tablet (250 mg) Once per day for 4 days -ibuprofen 600 MG PRN for fever or pain. -droplet precautions discussed -supportive care discussed documented in this encounter Plan of Treatment Upcoming Encounters Date Type Department Care Team (Late st Contact Info) Description 09/15/2024 2:00 PM EDT Office Visit [facility] [address] [place] [address] Ainsley Cervantes NP [address] [place] [address] documented as of this encounter Procedures Procedure Name Priority Date/Time Associated Diagnosis Comments POCT INFLUENZA A (ID NOW RAPID MOLECULAR) Routine 08/19/2024 5:19 PM EST Acute streptococcal pharyngitis POCT INFLUENZA B (ID NOW RAPID MOLECULAR) Routine 08/19/2024 5:16 PM EST Acute streptococcal pharyngitis POCT RAPID COVID ANTIGEN Routine 08/19/2024 5:16 PM EST Acute streptococcal pharyngitis POC DEAL ID NOW STREP A Routine 08/19/2024 5:10 PM EST Acute streptococcal pharyngitis documented in this encounter Results * POCT Rapid Influenza A DEAL ID NOW (08/19/2024 5:19 PM EST) Influenza A Negative Negative, Indeterminate [facility] QC Media Lot # [id number] [facility] Lot# Expiration Date [facility] Swab 08/19/2024 5:19 PM EST Tereza Sebastian MD POINT OF CARE TEST ENTER/E DIT ORDERABLES Final Result Performing Organization Address [facility] Co de Phone Number [facility] [address] [place] [phone] * POCT Rapid Covid-19 BinaxNOW (08/19/2024 5:16 PM EST) [facility] Rapid COVID Ag Negative QC Media Lot # [id number] Lot# Expiration Date Swab 08/19/2024 5:16 PM EST Tereza Sebastian MD POINT OF CARE TEST ENTER/E DIT ORDERABLES Final Result * (ABNORMAL) POCT Rapid Influenza B DEAL ID NOW (08/19/2024 5:16 PM EST) [facility] Influenza B Positive( A) Negative, Indeterminate [facility] QC Media Lot # [id number] [facility] Lot# Expiration Date 6 [facility] Swab 08/19/2024 5:16 PM EST Tereza Sebastian MD POINT OF CARE TEST ENTER/E DIT ORDERABLES Final Result Performing Organization Address [facility]/ZIP Co de Phone Number [facility] [address] [place] [phone] * (ABNORMAL) POCT Rapid Strep A DEAL ID NOW (08/19/2024 5:10 PM EST) [facility] Rapid Strep A Screen Positive( A) Negative, None Detected QC Media Lot # [id number] Lot# Expiration Date 6 Swab 08/19/2024 5:10 PM EST Tereza Sebastian MD POINT OF CARE TEST ENTER/E DIT ORDERABLES Final Result documented in this encounter Visit Diagnoses Diagnosis Acute streptococcal pharyngitis- Primary Streptococcal sore throat Influenza B Influenza with other respiratory manifestations documented in this encounter Care Teams Supervisor Ship Maintenance Services Relationship Specialty Start Date End Date Ainsley Cervantes NP [address] [place] [phone] PCP - General Family Medicine 08/13/23 documented as of this encounter
== END 2024-08-22 10:41 | disposition home or self-care (01) ==
LOC: HO.HHCX 10:40
PROVIDERS: Visit Provider Internal Medicine
DX: R05.3 Chronic cough (principal); J10.1 Influenza due to other identified influenza virus with other respiratory manifestations
CPT/HCPCS: 71046

== ENCOUNTER → 2024-08-22 10:41 | Outpatient (BNV) | payer MEDICAID, SELFPAY | PROVIDERS: Visit Provider Radiology Diagnostic Radiology | DX: R05.3 Chronic cough (principal) | CPT/HCPCS: 71046 ==